=== PATIENT | female | born 1965 | race Hispanic/Latino ===

== ENCOUNTER 2017-10-04 09:11 | Emergency (ER) | payer MEDICAID ==
[2017-10-04 09:28] VITALS: BP 135/78; PULSE 100; RESP 16; TEMP 97.9; O2SAT 99
--- NOTE | 2017-10-04 09:51 | ED PDOC ---
Arrival/HPI - General Chief Complaint: Abnormal Skin Integrity Time Seen by Provider: 10/04/17 09:43 Historian: Patient - History of Present Illness Narrative History of Present Illness (Text): 10/04/17 09:43 52yo female with pmhx of anxiety who present requesting a prescription for a Mite bite. She states she has been getting mite bite for 5years now. States she was misdiagnosed by both her Doctor and a Dynamic Balancer Set Up Worker with antibiotics for infection. states she was finally diagnosed as a mite bite and was referred to the ED by her PMD and Dynamic Balancer Set Up Worker for Ivermectin and Permethrin prescription. states her Doctor told her she won't give it to her and her Dynamic Balancer Set Up Worker told her the same thing and they referred her to ED. She denies any other complaint. Past Medical History - Provider Review Nursing Documentation Reviewed: Yes - Cardiac Hx Cardiac Disorders: No - Pulmonary Hx Respiratory Disorders: No - Neurological Hx Neurological Disorder: No - HEENT Hx HEENT Disorder: No - Renal Hx Renal Disorder: No - Endocrine/Metabolic Hx Endocrine Disorders: No - Hematological/Oncological Hx Blood Disorders: Yes Hx Cancer: Yes (CERVICAL) - Integumentary Hx Dermatological Disorder: Yes - Musculoskeletal/Rheumatological Hx Musculoskeletal Disorders: No - Gastrointestinal Hx Gastrointestinal Disorders: No - Genitourinary/Gynecological Hx Genitourinary Disorders: No - Psychiatric Hx Psychophysiologic Disorder: Yes Hx Anxiety: Yes Hx Substance Use: No - Surgical History Other/Comment: FACIAL, R FOOT Family/Social History - Physician Review Nursing Documentation Reviewed: Yes Family/Social History: Unknown Family HX Smoking Status: Never Smoked Hx Alcohol Use: No Hx Substance Use: No Allergies/Home Meds Allergies/Adverse Reactions: Allergies gabapentin Allergy (Verified 10/04/17 09:22) RASH Home Medications: Home Meds Medication Instructions Recorded Confirmed Unobtainable 10/04/17 10/04/17 Review of Systems - Physician Review All systems were reviewed & negative as marked: Yes - Review of Systems Constitutional: Normal Eyes: Normal ENT: Normal Respiratory: Normal Cardiovascular: Normal Gastrointestinal: Normal Genitourinary Female: Normal Musculoskeletal: Normal Skin: Other (Mite bite) Neurological: Normal Endocrine: Normal Hemo/Lymphatic: Normal Psychiatric: Normal Physical Exam Vital Signs Reviewed: Yes Vital Signs Temp Pulse Resp BP Pulse Ox 10/04/17 09:22 97.9 F 100 H 16 135/78 99 Temperature: Afebrile Blood Pressure: Normal Pulse: Regular Respiratory Rate: Normal Appearance: Positive for: Well-Appearing, Non-Toxic, Comfortable Pain Distress: None Mental Status: Positive for: Alert and Oriented X 3 - Systems Exam Head: Present: Atraumatic, Normocephalic Pupils: Present: PERRL Extroacular Muscles: Present: EOMI Conjunctiva: Present: Normal Mouth: Present: Moist Mucous Membranes Neck: Present: Normal Range of Motion Respiratory/Chest: Present: Clear to Auscultation, Good Air Exchange. No: Respiratory Distress, Accessory Muscle Use Cardiovascular: Present: Regular Rate and Rhythm, Normal S1, S2. No: Murmurs Abdomen: No: Tenderness, Distention, Peritoneal Signs Back: Present: Normal Inspection Upper Extremity: Present: Normal Inspection. No: Cyanosis, Edema Lower Extremity: Present: Normal Inspection. No: Edema Neurological: Present: GCS=15, CN II-XII Intact, Speech Normal Skin: Present: Warm, Dry, Normal Color, Other (Old healing wound with scab noted on b/l lower leg. No erytehma. No discharge. No crepitus). No: Rashes Psychiatric: Present: Alert, Oriented x 3, Normal Insight, Normal Concentration Medical Decision Making ED Course and Treatment: 10/04/17 09:52 PT presented to ED for stated history. She was hemodynamcially stable and in no distress. She was advised that she cannot get Ivermectin without a proper diagnosis. Told that she will need to get the prescription from the Doctor that performed the test. She was noted that she can get the Permethrin but not the Ivermectin. She left the ED when i was trying to get in touch with her PMD/Dynamic Balancer Set Up Worker to confirm her diagnosis. Disposition/Present on Arrival - Present on Arrival Any Indicators Present on Arrival: No History of DVT/PE: No History of Uncontrolled Diabetes: No Urinary Catheter: No History of Decub. Ulcer: No History Surgical Site Infection Following: None - Disposition Have Diagnosis and Disposition been Completed?: Yes Diagnosis: Insect bite Disposition: LEFT W/O TREATMENT - ER ONLY Disposition Time: 09:40 Condition: STABLE
== END 2017-10-04 09:44 | disposition left against medical advice (07) ==
LOC: MERGE 09:11 → ED 09:11
DX: S80.862A Insect bite (nonvenomous), left lower leg, initial encounter (principal); S80.861A Insect bite (nonvenomous), right lower leg, initial encounter; W57.XXXA Bitten or stung by nonvenomous insect and other nonvenomous arthropods, initial encounter; Y92.9 Unspecified place or not applicable

== ENCOUNTER 2017-12-16 09:39 | Emergency (ER) | payer MEDICAID ==
[2017-12-16 09:39] VITALS: BMI 19.3
[2017-12-16 09:59] VITALS: RESP 18; TEMP 98.3; O2SAT 98
--- NOTE | 2017-12-16 11:57 | ED PDOC ---
Arrival/HPI - General Historian: Patient - History of Present Illness Narrative History of Present Illness (Text): 12/16/17 11:52 52yo female with pmhx of anxiety bib EMS a very poor historian talking very tangential who present with complaint of rash and anxiety. states she was at a friend's apartment recently that had a cat and thinks it has a flea that was bitting her for the past 2weeks. States she was seen by a Jewel Inspector and other doctors for this rash, but plan to go see another Jewel Inspector. states she ran out of her Xanax and she is here for anxiety. She states that she plan to go see a psychiatrist when she goes back "home". she denies SI/HI, chest pain, SOB, any inciting factors, any other complaint. <AroldoHappiness A - Last Filed: 12/16/17 18:34> <Javier Mireles - Last Filed: 12/23/17 05:24> - General Chief Complaint: Anxiety Time Seen by Provider: 12/16/17 11:48 Past Medical History - Provider Review Nursing Documentation Reviewed: Yes - Infectious Disease Hx of Infectious Diseases: None - Reproductive Menopause: Yes - Cardiac Hx Hypertension: No - Pulmonary Hx Asthma: Yes - Neurological Hx Seizures: Yes - HEENT Hx HEENT Disorder: No - Renal Hx Renal Disorder: No - Endocrine/Metabolic Hx Endocrine Disorders: No - Hematological/Oncological Hx Cancer: Yes (Cervical) - Integumentary Hx Dermatological Disorder: Yes - Musculoskeletal/Rheumatological Hx Fractures: Yes - Gastrointestinal Hx Gastrointestinal Disorders: No - Genitourinary/Gynecological Hx Sexually Transmitted Diseases: No - Psychiatric Hx Anxiety: Yes Hx Substance Use: Yes (DENIES) - Surgical History Other/Comment: 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 jaw rejuvination , nosejob x4. face bone with titanium - Anesthesia Hx Anesthesia: Yes Hx Anesthesia Reactions: No - Suicidal Assessment Feels Threatened In Home Enviroment: No <Aroldo,Happiness A - Last Filed: 12/16/17 18:34> Family/Social History - Physician Review Nursing Documentation Reviewed: Yes Family/Social History: Unknown Family HX Smoking Status: Never Smoked Hx Alcohol Use: No Hx Substance Use: Yes (DENIES) Substance used: heroin & pain meds <AroldoHappiness A - Last Filed: 12/16/17 18:34> Allergies/Home Meds <AroldoHappiness A - Last Filed: 12/16/17 18:34> <ChiJonoJavier - Last Filed: 12/23/17 05:24> Allergies/Adverse Reactions: Allergies gabapentin Allergy (Verified 12/15/17 13:50) lubiprostone [From Amitiza] Allergy (Verified 12/15/17 13:50) morphine Allergy (Verified 12/15/17 13:50) Home Medications: Home Meds Medication Instructions Recorded Confirmed Alprazolam [Xanax] 1 tab PO DAILY 01/21/15 01/21/15 Clonazepam [Klonopin] 1 tab PO DAILY 01/21/15 01/21/15 Methadone Hydrochloride [Methadone 1 tab PO DAILY 01/21/15 01/21/15 HCl] Review of Systems - Physician Review All systems were reviewed & negative as marked: Yes - Review of Systems Constitutional: Normal Eyes: Normal ENT: Normal Respiratory: Normal Cardiovascular: Normal Gastrointestinal: Normal Genitourinary Female: Normal Musculoskeletal: Normal Skin: Rash Neurological: Normal Endocrine: Normal Hemo/Lymphatic: Normal Psychiatric: Anxiety <AroldoHappiness A - Last Filed: 12/16/17 18:34> Physical Exam Vital Signs Reviewed: Yes Vital Signs Temp Pulse Resp BP Pulse Ox 12/16/17 09:58 98.3 F 82 18 135/75 98 Temperature: Afebrile Blood Pressure: Normal Pulse: Regular Respiratory Rate: Normal Appearance: Positive for: Well-Appearing, Non-Toxic, Comfortable Pain Distress: None Mental Status: Positive for: Alert and Oriented X 3 - Systems Exam Head: Present: Atraumatic, Normocephalic Pupils: Present: PERRL Extroacular Muscles: Present: EOMI Conjunctiva: Present: Normal Mouth: Present: Moist Mucous Membranes Neck: Present: Normal Range of Motion Respiratory/Chest: Present: Clear to Auscultation, Good Air Exchange. No: Respiratory Distress, Accessory Muscle Use Cardiovascular: Present: Regular Rate and Rhythm, Normal S1, S2. No: Murmurs Abdomen: No: Tenderness, Distention, Peritoneal Signs Back: Present: Normal Inspection Upper Extremity: Present: Normal Inspection. No: Cyanosis, Edema Lower Extremity: Present: Normal Inspection. No: Edema Neurological: Present: GCS=15, CN II-XII Intact, Speech Normal Skin: Present: Warm, Dry, Normal Color. No: Rashes Psychiatric: Present: Alert, Oriented x 3, Normal Insight, Normal Concentration <Janice Kendrick A - Last Filed: 12/16/17 18:34> Vital Signs Temp Pulse Resp BP Pulse Ox 12/16/17 12:08 72 18 131/80 98 12/16/17 09:58 98.3 F 82 18 135/75 98 <Javier Mireles - Last Filed: 12/23/17 05:24> Medical Decision Making ED Course and Treatment: 12/23/17 05:24 The documented history was done by the physician analytics specialist. The documented physical exam was done by the physician analytics specialist. The documented procedures were done by the physician analytics specialist, I was available for consultation during the PA/HEARING AID MECHANIC evaluation. The chart was reviewed by me, and I agree with the management and plan. - Medication Orders Current Medication Orders: Discontinued Medications Alprazolam (Xanax) 1 mg PO ONCE STA; Protocol Stop: 12/16/17 11:52 Last Admin: 12/16/17 12:11 Dose: 1 mg <Javier Mireles - Last Filed: 12/23/17 05:24> Disposition/Present on Arrival - Present on Arrival Any Indicators Present on Arrival: No History of DVT/PE: No History of Uncontrolled Diabetes: No Urinary Catheter: No History of Decub. Ulcer: No History Surgical Site Infection Following: None - Disposition Have Diagnosis and Disposition been Completed?: Yes Disposition Time: 00:05 Patient Plan: Discharge <Janice Kendrick A - Last Filed: 12/16/17 18:34> <Javier Mireles - Last Filed: 12/23/17 05:24> - Disposition Diagnosis: Anxiety, Skin lesion Disposition: HOME/ ROUTINE Condition: STABLE Discharge Instructions (ExitCare): Anxiety, Adult (DC) Additional Instructions: Follow up with your doctor Return to ED for any new or worsening symptoms Referrals: Neena Mayo MD [Medical Doctor] - Follow up with primary Forms: [employer] ([place])
[2017-12-16 12:08] VITALS: BP 131/80; PULSE 72
--- NOTE | 2017-12-16 15:00 | CARD ---
APPROVED REPORT Date of service: 12/16/2017 EKG Measurement Heart [id number] <Conclusion> Normal sinus rhythm Left anterior fascicular block Prolonged QT Abnormal ECG
== END 2017-12-16 12:45 | disposition home or self-care (01) ==
LOC: ED 09:39
DX: F41.9 Anxiety disorder, unspecified (principal); L98.9 Disorder of the skin and subcutaneous tissue, unspecified